=== PATIENT | male | born 1990 ===

== ENCOUNTER → 2020-02-17 | Outpatient (CLI) | payer OTHER ==
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
== END ==
LOC: M RAD 09:05
PROVIDERS: ATTEND Surgery
DX: S61.202D Unspecified open wound of right middle finger without damage to nail, subsequent encounter (principal); X58.XXXA Exposure to other specified factors, initial encounter; Y92.9 Unspecified place or not applicable